=== PATIENT | male | born 1975 | race Caucasian/White ===

== ENCOUNTER → 2016-10-22 | Outpatient (CLI) | payer MEDICAID ==
[~2016-10-22] MED LIST: ASPIRIN1 POW PO; LEXAPRO 20 MG T20 MG PO; MEDROL 4MG. DOSE4 MG PO; OXYCONTIN 10MG10 MG PO; TAZTIA XT300 MG PO; VALIUM2 MG PO; VOLTAREN100 GM TP; XANAX 1MG TABLET1 MG PO
[2016-10-22 15:16] LABS: AMPHETAMINES/METAMPHETAMINES NEGATIVE ng/mL (<1000)
== END ==
LOC: LAB 14:37
PROVIDERS: Emergency Medicine
DX: Z79.899 Other long term (current) drug therapy (principal)

== ENCOUNTER → 2016-11-22 | Outpatient (CLI) | payer MEDICAID ==
[2016-11-22 15:13] LABS: AMPHETAMINES/METAMPHETAMINES NEGATIVE ng/mL (<1000)
== END ==
LOC: LAB 14:34
PROVIDERS: Emergency Medicine
DX: Z79.899 Other long term (current) drug therapy (principal)